=== PATIENT | male | born 1990 | race Caucasian/White ===

== ENCOUNTER 2018-06-25 14:36 | Emergency (ER) | payer MEDICAID ==
[~2018-06-25] VITALS: Wt 69.0 kg
[2018-06-25 14:42] VITALS: BP 140/68; PULSE 70; RESP 18
[2018-06-25] MEDS ORDERED: CEPH-443 PO (16:11)
--- NOTE | 2018-06-27 20:38 | ERD ---
ER Documentation Chief Complaint Chief Complaint TRIP AND FALL AND HIT CORNER OF WALL. NO LOC. SCALP LAC BLEEDING CONTROLLED HPI 28-year-old male presenting to the emergency department complaining of laceration to the frontal part of the scalp which occurred 1 hour prior to arrival after tripping and falling forward into a wall. He took no medication for relief of symptoms. He reports associated pain which is 3/10 in severity. He denies any loss of consciousness, vomiting, confusion, ataxia, or other symptoms at this time. ROS All systems reviewed and are negative except as per history of present illness. Medications Home Meds Active Scripts Cephalexin* (Keflex*) 500 Mg Capsule, 500 MG PO TID for 5 Days, CAP Prov:KIM RODRIGUEZ PA-C 06/25/18 PMhx/Soc Medical and Surgical Hx: pt denies Medical Hx, pt denies Surgical Hx Hx Alcohol Use: No Hx Substance Use: No Hx Tobacco Use: No Smoking Status: Never smoker FmHx Family History: No diabetes Physical Exam Vitals Vital Signs Date Temp Pulse Resp B/P (MAP) Pulse Ox O2 O2 Flow FiO2 Time Delivery Rate 06/25/18 97.6 70 18 140/68 99 14:42 (92) Physical Exam Const: No acute distress Head: There is an approximately 3 cm laceration noted to the scalp in the frontal lobe. Eyes: Normal Conjunctiva ENT: Normal External Ears, Nose and Mouth. Neck: Full range of motion. No meningismus. Resp: No respiratory distress. Skin: No petechiae or rashes Back: No midline or flank tenderness Ext: No cyanosis, or edema Neur: Awake and alert Neuro: M/S: Alert and oriented Face: EOMI, face and pharynx with normal sensation and function Motor: Normal strength throughout Sensation: Normal sensation throughout Speech: Normal Cerebel: Normal coordination Normal gait Normal finger to nose Psych: Normal Mood and Affect Procedures/MDM 28-year-old male presenting to the emergency department complaining of laceration to the frontal part of the scalp which occurred 1 hour prior to arrival after accidentally tripping and falling forward into a wall. The patient had no neurological deficits and I doubt any intracranial bleeding. Patient was explained the full risks, benefits, alternatives to laceration rep air with sutures and he gave verbal consent. Laceration Repair by me: Anesthesia: None indicated Location: Frontal lobe of the scalp Tendon/Joint/Nerves: No injury Foreign body: None detected after copious irrigation and exploration Technique: Clif[place] Complexity: No subcutaneous sutures/mucosal repair/edge excision Post Closure Length: 3cm Patient's bleeding was easily controlled in the department and there is no indication of anemia. No evidence of compartment syndrome, neurologic injury, vascular injury, open joint, tendon laceration, or foreign body. Patient is appropriate for outpatient follow up. 48 hour wound check. Scar minimization instructions given. No evidence of life-threatening pathology at time of discharge. Pt/family in agreement with discharge plan/diagnosis. Pt/family advised to return immediately with any new or worsening symptoms. Follow-up with primary care physician within the next 1-2 days. Departure Diagnosis: Primary Impression: Scalp laceration Encounter type: initial encounter Qualified Codes: S01.01XA - Laceration without foreign body of scalp, initial encounter Condition: Fair Patient Instructions: Laceration, Scalp Referrals: [facility] YOU HAVE RECEIVED A MEDICAL SCREENING EXAM AND THE RESULTS INDICATE THAT YOU DO NOT HAVE A CONDITION THAT REQUIRES URGENT TREATMENT IN THE EMERGENCY DEPARTMENT. FURTHER EVALUATION AND TREATMENT OF YOUR CONDITION CAN WAIT UNTIL YOU ARE SEEN IN YOUR DOCTORS OFFICE WITHIN THE NEXT 1-2 DAYS. IT IS YOUR RESPONSIBILITY TO MAKE AN APPOINTMENT FOR FOLOW-UP CARE. IF YOU HAVE A PRIMARY DOCTOR --you should call your primary doctor and schedule an appointment IF YOU DO NOT HAVE A PRIMARY DOCTOR YOU CAN CALL OUR PHYSICIAN REFERRAL HOTLINE AT IF YOU CAN NOT AFFORD TO SEE A PHYSICIAN YOU CAN CHOSE FROM THE FOLLOWING [facility] [id number] [facility]. [facility] [address] [facility] [facility] [address] [facility] [facility] [address] [facility] [facility] [address] [facility]. [facility] [address] Additional Instructions: Call your primary care doctor TOMORROW for an appointment during the next 1-2 days.See the doctor sooner or return here if your condition worsens before your appointment time. KIM RODRIGUEZ PA-C June 27, 2018 20:38
== END 2018-06-25 16:32 | disposition home or self-care (01) ==
LOC: FTE 14:36
DX: S01.01XA Laceration without foreign body of scalp, initial encounter (principal); W01.198A Fall on same level from slipping, tripping and stumbling with subsequent striking against other object, initial encounter; Y92.9 Unspecified place or not applicable
CPT/HCPCS: 12002; Z7502